=== PATIENT | female | born 1960 | race Asian ===

== ENCOUNTER → 2018-04-11 | Outpatient (CLI) | payer OTHER | END | disposition home or self-care (01) | LOC: CFH 10:02 | PROVIDERS: ATTEND Internal Medicine | DX: Z12.31 Encounter for screening mammogram for malignant neoplasm of breast (principal); Z80.3 Family history of malignant neoplasm of breast | CPT/HCPCS: 77067 ==

== ENCOUNTER → 2018-04-21 | Outpatient (CLI) | payer OTHER | END | disposition home or self-care (01) | LOC: CVU 07:02 | PROVIDERS: ATTEND Internal Medicine | DX: R25.2 Cramp and spasm (principal); M79.673 Pain in unspecified foot; E11.9 Type 2 diabetes mellitus without complications; E78.5 Hyperlipidemia, unspecified; F17.210 Nicotine dependence, cigarettes, uncomplicated; Z88.8 Allergy status to other drugs, medicaments and biological substances; Z85.038 Personal history of other malignant neoplasm of large intestine | CPT/HCPCS: 93922; 93925 ==

== ENCOUNTER 2021-04-03 08:38 | Outpatient (CLI) | payer OTHER | END 2021-04-03 23:59 | disposition home or self-care (01) | LOC: CFH 08:38 | PROVIDERS: ATTEND Specialist | DX: R92.8 Other abnormal and inconclusive findings on diagnostic imaging of breast (principal) | CPT/HCPCS: 77061; 77065; G0279 ==